=== PATIENT | male | born 1975 ===

== ENCOUNTER → 2019-03-25 20:53 | Outpatient (ROUT) | payer OTHER, SELFPAY ==
[2019-03-29 15:09] LABS: RPR Screen Nonreactive (Nonreactive)
== END ==
PROVIDERS: Visit Provider Family Medicine
DX: Z11.3 Encounter for screening for infections with a predominantly sexual mode of transmission (principal); Z11.1 Encounter for screening for respiratory tuberculosis
CPT/HCPCS: 36415; 86480; 86592; 86735; 86762; 86765; 87591